=== PATIENT | female | born 1930 | race Caucasian/White ===

== ENCOUNTER → 2016-02-29 | Outpatient (CLI) | payer OTHER ==
[2016-02-29 15:32] LABS: BASOPHILS # (AUTO) 0.04 10*3/UL; BASOPHILS % (AUTO) 0.3 % (0-1); EOSINOPHILS % (AUTO) 4.1 % (0-8); HEMATOCRIT 31.7 % (37.0-47.0); HEMOGLOBIN 9.8 g/dL (12.0-16.0); IMM GRAN % (AUTO) 0.3 % (0-5); IMM GRAN# (AUTO) 0.04 10*3/UL; LYMPHOCYTES # (AUTO) 6.24 10*3/uL; LYMPHOCYTES % (AUTO) 49.6 % (10-50); MEAN CORPUSCULAR HEMOGLOBIN 26.6 PG (27-31); MEAN CORPUSCULAR HGB CONC 30.9 g/dL (33-37); MEAN PLATELET VOLUME 9.9 FL (7.4-12.2); MONOCYTES # (AUTO) 0.66 10*3/UL (0.3-0.8); MONOCYTES % (AUTO) 5.2 % (5-15); NEUTROPHILS # (AUTO) 5.08 10*3/UL; NEUTROPHILS % (AUTO) 40.5 % (50-80); RDW COEFFICIENT OF VARIATION 16.8 % (11.5-14.5); RED BLOOD COUNT 3.68 10^6/uL (4.20-5.40); WHITE BLOOD COUNT 12.58 10^3/uL (4.8-10.8)
[2016-02-29 15:46] LABS: PLATELET MORPHOLOGY COMMENT NORMAL MORPHOLOGY (NORM)
[2016-02-29 16:33] LABS: BLOOD UREA NITROGEN 97 mg/dL (7-22); BUN/CREATININE RATIO 10.31 (6-20); CALCIUM 8.8 mg/dL (8.7-10.7); CHLORIDE 109 meq/L (98-112); CREATININE 9.4 mg/dL (0.50-1.20); GLUCOSE 112 mg/dL (78-110); PHOSPHORUS 7.2 mg/dl (2.4-4.3); POTASSIUM 5.2 meq/L (3.8-5.2); SODIUM 143 meq/L (135-145)
== END ==
LOC: MOB LAB 14:18
DX: I12.0 Hypertensive chronic kidney disease with stage 5 chronic kidney disease or end stage renal disease (principal); N18.5 Chronic kidney disease, stage 5; E03.9 Hypothyroidism, unspecified; D63.1 Anemia in chronic kidney disease; R13.10 Dysphagia, unspecified; M15.8 Other polyosteoarthritis; E79.0 Hyperuricemia without signs of inflammatory arthritis and tophaceous disease
CPT/HCPCS: 36415; 80048; 84100; 85025; G0463

== ENCOUNTER → 2016-03-23 | Outpatient (CLI) | payer OTHER | LOC: MMPC 11:11 | DX: R06.02 Shortness of breath (principal); N28.9 Disorder of kidney and ureter, unspecified; E03.9 Hypothyroidism, unspecified; I10 Essential (primary) hypertension; R13.10 Dysphagia, unspecified; N18.5 Chronic kidney disease, stage 5; E79.0 Hyperuricemia without signs of inflammatory arthritis and tophaceous disease | CPT/HCPCS: 99213; G0463 ==

== ENCOUNTER → 2016-04-06 | Outpatient (CLI) | payer OTHER ==
[2016-04-06 12:05] LABS: BASOPHILS # (AUTO) 0.02 10*3/UL; BASOPHILS % (AUTO) 0.2 % (0-1); EOSINOPHILS % (AUTO) 6.2 % (0-8); HEMATOCRIT 31.1 % (37.0-47.0); HEMOGLOBIN 9.4 g/dL (12.0-16.0); IMM GRAN % (AUTO) 0.2 % (0-5); IMM GRAN# (AUTO) 0.02 10*3/UL; LYMPHOCYTES # (AUTO) 5.49 10*3/uL; LYMPHOCYTES % (AUTO) 50.6 % (10-50); MEAN CORPUSCULAR HEMOGLOBIN 25.5 PG (27-31); MEAN CORPUSCULAR HGB CONC 30.2 g/dL (33-37); MEAN PLATELET VOLUME 9.4 FL (7.4-12.2); MONOCYTES # (AUTO) 0.47 10*3/UL (0.3-0.8); MONOCYTES % (AUTO) 4.3 % (5-15); NEUTROPHILS # (AUTO) 4.19 10*3/UL; NEUTROPHILS % (AUTO) 38.5 % (50-80); RDW COEFFICIENT OF VARIATION 17.3 % (11.5-14.5); RED BLOOD COUNT 3.69 10^6/uL (4.20-5.40); WHITE BLOOD COUNT 10.86 10^3/uL (4.8-10.8)
[2016-04-06 12:26] LABS: BLOOD UREA NITROGEN 108 mg/dL (7-22); CALCIUM 8.6 mg/dL (8.7-10.7); CHLORIDE 106 meq/L (98-112); GLUCOSE 91 mg/dL (78-110); PHOSPHORUS 7.6 mg/dl (2.4-4.3); POTASSIUM 4.7 meq/L (3.8-5.2); SODIUM 141 meq/L (135-145)
[2016-04-06 12:58] LABS: PLATELET MORPHOLOGY COMMENT NORMAL MORPHOLOGY (NORM)
== END ==
LOC: MOB LAB 10:34
DX: N18.5 Chronic kidney disease, stage 5 (principal); D63.1 Anemia in chronic kidney disease
CPT/HCPCS: 36415; 80048; 84100; 85025

== ENCOUNTER → 2016-05-10 | Outpatient (CLI) | payer OTHER ==
[2016-05-10 17:17] LABS: BASOPHILS # (AUTO) 0.02 10*3/UL; BASOPHILS % (AUTO) 0.2 % (0-1)
[2016-05-10 17:19] LABS: EOSINOPHILS # (AUTO) 0.35 10*3/UL; EOSINOPHILS % (AUTO) 3.3 % (0-8); HEMATOCRIT 32.7 % (37.0-47.0); HEMOGLOBIN 9.9 g/dL (12.0-16.0); LYMPHOCYTES # (AUTO) 5.54 10*3/uL; MEAN CORPUSCULAR HEMOGLOBIN 24.5 PG (27-31); MEAN CORPUSCULAR HGB CONC 30.3 g/dL (33-37); MEAN CORPUSCULAR VOLUME 80.9 FL (81-99); MEAN PLATELET VOLUME 9.3 FL (7.4-12.2); MONOCYTES % (AUTO) 5.7 % (5-15); NEUTROPHILS # (AUTO) 3.97 10*3/UL; NEUTROPHILS % (AUTO) 37.8 % (50-80); RED BLOOD COUNT 4.04 10^6/uL (4.20-5.40)
[2016-05-10 17:20] LABS: PLATELET MORPHOLOGY COMMENT NORMAL MORPHOLOGY (NORM); RBC MORPHOLOGY COMMENT NORMAL MORPHOLOGY (NORM); WBC MORPHOLOGY COMMENT NORMAL MORPHOLOGY (NORM)
[2016-05-10 18:10] LABS: BLOOD UREA NITROGEN 109 mg/dL (7-22); BUN/CREATININE RATIO 9.56 (6-20); CALCIUM 8.3 mg/dL (8.7-10.7); PHOSPHORUS 6.9 mg/dl (2.4-4.3)
== END ==
LOC: MOB LAB 16:18
DX: I12.0 Hypertensive chronic kidney disease with stage 5 chronic kidney disease or end stage renal disease (principal); N18.5 Chronic kidney disease, stage 5
CPT/HCPCS: 36415; 80048; 84100; 85025

== ENCOUNTER → 2016-06-02 | Outpatient (CLI) | payer OTHER ==
[2016-06-02 12:59] LABS: BASOPHILS # (AUTO) 0.01 10*3/UL; BASOPHILS % (AUTO) 0.1 % (0-1); EOSINOPHILS # (AUTO) 0.03 10*3/UL; EOSINOPHILS % (AUTO) 0.3 % (0-8); HEMATOCRIT 26.8 % (37.0-47.0); HEMOGLOBIN 8.1 g/dL (12.0-16.0); LYMPHOCYTES # (AUTO) 4.23 10*3/uL; MEAN CORPUSCULAR HEMOGLOBIN 23.7 PG (27-31); MEAN CORPUSCULAR HGB CONC 30.2 g/dL (33-37); MEAN CORPUSCULAR VOLUME 78.4 FL (81-99); MEAN PLATELET VOLUME 9.5 FL (7.4-12.2); MONOCYTES # (AUTO) 0.54 10*3/UL (0.3-0.8); MONOCYTES % (AUTO) 5.4 % (5-15); NEUTROPHILS # (AUTO) 5.11 10*3/UL; RED BLOOD COUNT 3.42 10^6/uL (4.20-5.40)
[2016-06-02 13:01] LABS: PLATELET MORPHOLOGY COMMENT NORMAL MORPHOLOGY (NORM); RBC MORPHOLOGY COMMENT NORMAL MORPHOLOGY (NORM); WBC MORPHOLOGY COMMENT NORMAL MORPHOLOGY (NORM)
[2016-06-02 13:35] LABS: BLOOD UREA NITROGEN 140 mg/dL (7-22); BUN/CREATININE RATIO 12.06 (6-20)
== END ==
LOC: MOB LAB 10:57
DX: I12.0 Hypertensive chronic kidney disease with stage 5 chronic kidney disease or end stage renal disease (principal); N18.5 Chronic kidney disease, stage 5; D63.1 Anemia in chronic kidney disease; E03.9 Hypothyroidism, unspecified; R11.0 Nausea; M15.8 Other polyosteoarthritis; R13.10 Dysphagia, unspecified
CPT/HCPCS: 80048; 84100; 85025; G0463; J2550